=== PATIENT | male | born 1990 | race African-American/Black ===

== ENCOUNTER 2021-11-17 19:19 | Emergency (ER) | payer SELFPAY ==
--- NOTE | 2021-11-17 21:54 | NUR ---
Pt was already seen earlier during the day using a different name, now refusing to be seen again per his family's request, provided family with resources for drug abuse counseling.
== END 2021-11-17 21:55 | disposition left against medical advice (07) ==
LOC: ER 19:23
DX: Z53.21 Procedure and treatment not carried out due to patient leaving prior to being seen by health care provider (principal)